=== PATIENT | female | born 1975 | race Caucasian/White ===

== ENCOUNTER → 2017-09-30 | Outpatient (CLI) | payer BC | LOC: GMAM 17:34 | PROVIDERS: ATTEND Family Medicine | DX: R53.82 Chronic fatigue, unspecified (principal); D64.9 Anemia, unspecified; Z79.899 Other long term (current) drug therapy ==

== ENCOUNTER → 2017-10-07 | Outpatient (CLI) | payer BC ==
--- NOTE | 2017-10-06 09:48 | MAM ---
EXAM DESCRIPTION: 3D Screening BILATERAL : Digital Mammography. 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 No complaints. Remote family history of ovarian cancer. No family history of breast cancer. Childbirth. Premenopausal. No HRT. Cyst aspiration left breast.. COMPARISON: Baseline study at this facility. No prior reports available. TECHNIQUE: Bilateral CC and MLO projection full-field images, 3-D tomosynthesis digital mammographic technique. CAD not utilized. FINDINGS: The breast parenchymal density pattern is: Heterogeneously dense breast tissue, which may obscure small masses. No skin thickening or nipple retraction. Bilateral axillary lymph nodes. Focal asymmetry in the posterior third of the upper-outer quadrant of the left breast at approximately 900 clock position, 8 cm from the nipple. No associated microcalcifications. No new focal, stellate mass or density, focal asymmetry , and no suspicious microcalcifications right breast. IMPRESSION: BI-RADS CATEGORY: 0 - INCOMPLETE- Need additional imaging evaluation. FOLLOW-UP: Recall for additional imaging: Bilateral 3-D tomosynthesis full field LM images of the breasts. Left breast 2-D digital spot compression of the region of interest upper outer quadrant posterior third left breast. Targeted left breast ultrasound to follow if indicated by diagnostic images.. Written communication concerning the IMPRESSION and Follow-up, will be mailed to the patient and referring health care provider. Electronically signed by: Ventura Aguilar MD 10/06/2017 9:47 AM CDT
== END ==
LOC: MAMMO 16:24
PROVIDERS: ATTEND Family Medicine
DX: Z12.31 Encounter for screening mammogram for malignant neoplasm of breast (principal)